=== PATIENT | male | born 1975 | race Caucasian/White ===

== ENCOUNTER 2019-07-02 15:44 | Inpatient (IN) | payer MEDICARE ==
[~2019-07-02] VITALS: Ht 182.8 cm; Wt 96.6 kg
--- NOTE | ~2019-07-02 | CON ---
[place], [place] REPORT OF CONSULTATION NAME: JONNIE LONGO UNIT #: [id number] ROOM: 419 DOCTOR: PHD DARIEL MARTINHERINE BIRTHDATE: [birth year] DOS: 07/05/2019 HISTORY OF PRESENT ILLNESS: The patient is a 43-year-old male referred by the hospitalist for counseling due to depression. At the present time, the patient is on the 4th floor at [facility]. The patient presented to the ED for alcohol withdrawal. He was participating in [facility] [employer] program. He lives alone. He has never and does not have any children. He is drinking 3 sets of liquor every day and a case of beer, he drinks a 3 sets of whiskey and a case of beer daily. He had had 10 months of sobriety. He is a smoker and has a history of drug use. He is currently using marijuana. He is on disability due to spinal issues. He worked in the past as a musician. PAST MEDICAL HISTORY: Anxiety, back fracture, cervical pain, CVA, delirium tremens, DVT, dyslipidemia, marijuana abuse, MRSA, myocardial infarction, near syncope, opiate use, renal failure, ventricular trigeminy, and vitamin D insufficiency. MEDICATIONS: Nicotrol inhaler, folic acid, thiamine, Theragran, Lovenox, Sinequan, Neurontin, Desyrel, Zofran, Maalox, Dulcolax, Senokot, Imodium, nicotine, polacrilex, Motrin, Tylenol, Nicoderm, Vistaril, Bentyl, Robaxin, Ativan, and Librium. PHYSICAL EXAMINATION: The patient was sitting comfortably, in no apparent distress. He was awake, alert and oriented to person, place, and time. Mood was anxious and depressed. Affect was tearful and blunted. He endorsed passive suicidal ideation, but firmly denied active thoughts of wanting to harm himself or someone else. He cites his quaker beliefs as a protective factor. He endorsed subjective sense of sadness and loneliness, poor sleep, racing thoughts and hopelessness. [facility] and is trying to start individual counseling again as well. He is also hoping to engage in alcohol abuse counseling. He has a significant trauma history, which we discussed. Speech and language were within normal limits conversationally. Thought process was linear and goal directed. Thought content was negative for hallucinations or delusions. Discussed the patient's concerns about discharging, utilized CBT and supportive therapy interventions. The patient appeared to benefit. DIAGNOSES: Alcohol abuse, posttraumatic stress disorder, bipolar disorder by history. RECOMMENDATIONS: The patient would likely benefit from continuing to follow up with the [facility] for his medication management and also individual counseling, specifically dealing with his trauma history. He would also likely benefit from alcohol abuse counseling as well. The patient is agreeable and plans to follow up after discharge. Thank you very much for this consult. [place], [place] REPORT OF CONSULTATION NAME: JONNIE LONGO UNIT #: [id number] ROOM: 419 DOCTOR: RENALDO, PHD AGUSTIN BIRTHDATE: [birth year] Catia Martin, PhD CM:CONSTR:REPORT OF CONSULTATION 1206 07/05/19 2211 interface
--- NOTE | ~2019-07-02 | EKG ---
[place], [place] ELECTROCARDIOGRAM REPORT NAME: JONNIE LONGO UNIT #: [id number] ROOM: 424 DOCTOR: RODRIGUEZ DRAFT REPORT BIRTHDATE: [birth year] [facility] Test Date: 2019-07-02 Test Time: 17:01:34 Pat Name: JONNIE LONGO Department: Room: 424 Gender: M Tow Motor Operator: Laura Samson : 1975 Requested By: PATRICIA SHABAZZ Order Number: [id number] Reading MD: Ignacio Garcia Measurements Intervals [place] Rate: 69 P: 37 CO: 112 QRS: 54 QRSD: 90 T: 9 QT: 379 QTc: 406 Interpretive Statements Sinus rhythm Borderline short CO interval Nonspecific T abnormalities, lateral leads ST elev, probable normal early repol pattern Compared to ECG 04/16/2019 17:54:26 T-wave abnormality now present Sinus bradycardia no longer present ST (T wave) deviation still present Electronically Signed On 07-04-2019 8:52:21 PDT by Ignacio Garcia CM:EKGRPT:ELECTROCARDIOGRAM REPORT [id number] PATRICIA FRIAS DRAFT REPORT PATRICIA SHAABZZ
[~2019-07-02 15:44] MED LIST: ASPIRIN CHEWABL81 MG PO; ATIVAN0.5 MG PO; DOXEPIN50 MG PO; DOXYCYCLINE MO100 M1 PO; DOXYCYCLINE100 M3 PO; GLYCOPYRROLATE2 MG PO; IBU800 M2 PO; NEURONTIN300 MG PO; ONDANSETRON8 MG PO; VITAMIN D32000 UNI1 PO
[2019-07-02 15:49] VITALS: BP 146/90
[2019-07-02] MEDS ORDERED: LORAZEPAM0.5 MG PO (15:53)
[2019-07-02] MEDS ORDERED: DOXEPIN HCL50 MG PO (15:53)
[2019-07-02] MEDS ORDERED: GABAPENTIN400 MG PO (15:53)
[2019-07-02 16:20] LABS: BASO # 0.1 10*3/uL (0.0-0.1); BASO % 0.4 % (0.0-1.0); EOS # 0.4 10*3/uL (0.0-0.4); EOS % 2.6 % (1.0-4.0); HEMATOCRIT 45.5 % (42.0-52.0); HEMOGLOBIN 15.4 g/dl (14.0-18.0); LYMPH # 3.6 10*3/uL (1.3-4.4); LYMPH % 23.7 % (27.0-41.0); MEAN CELL VOLUME 90.8 fl (80.0-94.0); MEAN CORPUSCULAR HGB 30.7 pg (27.0-31.0); MEAN CORPUSCULAR HGB CONC 33.8 g/dl (33.0-37.0); MEAN PLATELET VOLUME 10.5 fl (9.6-12.3); MONO # 0.8 10*3/uL (0.1-1.0); NEUT # 10.2 10*3/uL (2.3-7.9); NEUT % 67.8 % (47.0-73.0); PLATELET COUNT AUTOMATED 183 10*3/uL (130-400); RED BLOOD COUNT 5.01 10*6/uL (4.50-5.90); RED CELL DISTRI WIDTH 13.7 % (0-14.5)
[2019-07-02 16:31] LABS: ACT PARTIAL THROMBO TIME 27.1 SECONDS (20.0-32.1); INTERNATIONAL NORM RATIO 0.9 (2.0-3.5)
[2019-07-02 16:36] LABS: ALBUMIN 3.8 gm/dl (3.1-4.5); ALKALINE PHOSPHATASE 71 U/L (45-117); BUN 10 mg/dl (7-24); CHLORIDE 109 mmol/L (98-107); CREATININE 1.16 mg/dL (0.70-1.30); SGOT/AST 19 IU/L (3-35); SGPT/ALT 37 U/L (12-78); SODIUM 141 mmol/L (136-145); TOTAL PROTEIN 7.4 gm/dL (6.4-8.2)
[2019-07-02 16:37] LABS: ETHYL ALCOHOL < 3.0 mg/dl (<3)
[2019-07-02 16:44] LABS: THYROID STIM HORMONE (HS) 0.826 uIU/ml (0.358-4.75)
[2019-07-02 16:45] VITALS: BP 130/78
[2019-07-02 17:33] VITALS: BP 139/73
[2019-07-02 20:00] VITALS: BP 137/73
[2019-07-02 20:26] LABS: BILIRUBIN NEGATIVE (NEGATIVE); BLOOD NEGATIVE (NEGATIVE); CLARITY CLEAR (CLEAR); COLOR YELLOW (YELLOW); GLUCOSE NEGATIVE (NEGATIVE); KETONE TRACE (NEGATIVE); LEUKO ESTERASE NEGATIVE (NEGATIVE); NITRITE NEGATIVE (NEGATIVE); SPECIFIC GRAVITY 1.025 (1.005-1.030); UROBILINOGEN 0.2 E.U./dl (0.2-1.0)
[2019-07-02 20:34] LABS: BACTERIA 1+; EPITHELIAL CELLS 0-2; URINE AMPHETAMINES < 1000 (1000ng/ml); URINE BARBITURATES > 200 (200ng/ml); URINE BENZODIAZEPINES < 200 (200ng/ml); URINE CANNABINOIDS (THC) > 50 (50ng/ml); URINE COCAINE < 300 (300ng/ml); URINE METHADONE < 300 (300ng/ml); URINE OPIATES < 300 (300ng/ml)
[2019-07-02 20:36] LABS: URINE PHENCYCLIDINE < 25 (25ng/ml)
[2019-07-03] VITALS: BP 130/62
[2019-07-03 08:00] VITALS: BP 104/60
[2019-07-03 16:00] VITALS: BP 126/86
[2019-07-03 19:34] VITALS: BP 150/84
[2019-07-03 20:00] VITALS: BP 136/76
[2019-07-04] VITALS: BP 131/79
[2019-07-04 08:00] VITALS: BP 90/53
[2019-07-04 09:09] VITALS: BP 124/70
[2019-07-04 12:00] VITALS: BP 134/87
[2019-07-04 16:00] VITALS: BP 145/95
[2019-07-04 20:00] VITALS: BP 153/87
[2019-07-05] VITALS: BP 139/58
[2019-07-05 06:17] LABS: BASO # 0.1 10*3/uL (0.0-0.1); BASO % 0.6 % (0.0-1.0); EOS # 0.6 10*3/uL (0.0-0.4); EOS % 5.3 % (1.0-4.0); HEMATOCRIT 43.2 % (42.0-52.0); HEMOGLOBIN 14.1 g/dl (14.0-18.0); LYMPH # 3.9 10*3/uL (1.3-4.4); LYMPH % 34.8 % (27.0-41.0); MEAN CELL VOLUME 92.1 fl (80.0-94.0); MEAN CORPUSCULAR HGB 30.1 pg (27.0-31.0); MEAN CORPUSCULAR HGB CONC 32.6 g/dl (33.0-37.0); MEAN PLATELET VOLUME 10.8 fl (9.6-12.3); MONO % 9.1 % (3.0-9.0); NEUT # 5.6 10*3/uL (2.3-7.9); NEUT % 49.3 % (47.0-73.0); PLATELET COUNT AUTOMATED 158 10*3/uL (130-400); RED BLOOD COUNT 4.69 10*6/uL (4.50-5.90); RED CELL DISTRI WIDTH 13.7 % (0-14.5); WHITE BLOOD COUNT 11.3 10*3/uL (4.8-10.8)
[2019-07-05 06:42] LABS: CREATININE 0.98 mg/dL (0.70-1.30)
[2019-07-05 08:00] VITALS: BP 129/72
[2019-07-05] MEDS ORDERED: VITAMIN B-1100 M1 PO (11:27)
[2019-07-05] MEDS ORDERED: MOTRIN 600 MG E4 TAB PO (11:27)
[2019-07-05] MEDS ORDERED: THERA TABLET400 MCG PO (11:27)
[2019-07-05] MEDS ORDERED: METHOCARBAMOL750 M1 PO (11:27)
[2019-07-05] MEDS ORDERED: ATARAX,VISTARIL50 MG PO (11:27)
[2019-07-05] MEDS ORDERED: DICYCLOMINE HCL20 MG PO (11:27)
[2019-07-05] MEDS ORDERED: NATURE'S BLEND F1 MG PO (11:27)
[2019-07-05 12:00] VITALS: BP 143/77
== END 2019-07-05 13:15 | disposition home or self-care (01) | DRG 897 ==
LOC: ED 15:44 → 4E 15:59 → EDHOLD 15:59 → 4E 16:42
PROVIDERS: Emergency Medicine; ADMIT Family Medicine
DX: F10.239 Alcohol dependence with withdrawal, unspecified (principal); E83.41 Hypermagnesemia; F17.210 Nicotine dependence, cigarettes, uncomplicated; E78.5 Hyperlipidemia, unspecified; F43.10 Post-traumatic stress disorder, unspecified; E66.3 Overweight; F31.9 Bipolar disorder, unspecified; E78.00 Pure hypercholesterolemia, unspecified; D72.829 Elevated white blood cell count, unspecified; Z71.6 Tobacco abuse counseling; Z88.8 Allergy status to other drugs, medicaments and biological substances; Z86.73 Personal history of transient ischemic attack (TIA), and cerebral infarction without residual deficits; Z86.718 Personal history of other venous thrombosis and embolism; Z86.14 Personal history of Methicillin resistant Staphylococcus aureus infection; I25.2 Old myocardial infarction; Z98.1 Arthrodesis status; Z68.28 Body mass index [BMI] 28.0-28.9, adult

== ENCOUNTER 2019-07-11 09:30 | Inpatient (IN) | payer MEDICARE ==
[2019-07-11] VITALS (8 sets, daily range): BP systolic 113–133; BP diastolic 60–81
[~2019-07-11] VITALS: Ht 182.8 cm; Wt 98.5 kg
--- NOTE | ~2019-07-11 | PR ---
[place], [place] PROGRESS NOTE NAME: JONNIE LONGO UNIT #: [id number] ROOM: 516 DOCTOR: JAMI DIAZ,NATHAN BIRTHDATE: [birth year] DOS: 07/12/2019 REASON FOR VISIT: Chest pain, syncope. SUBJECTIVE: The patient denies any chest pain on exertion, but had occasional left-sided pain at rest. No shortness of breath. No PND, no orthopnea. No nausea, vomiting, diarrhea. No dizziness. He described this pain as a hurting sensation at rest, lasts for a few seconds to minutes. No associated symptoms. REVIEW OF SYSTEMS: Review of the 8 systems negative except as mentioned above. PHYSICAL EXAMINATION: VITAL SIGNS: Blood pressure 126/66, pulse 54, respiratory rate was 18, weight 98.5 kilos. RHYTHM STRIPS: Shows sinus rhythm, occasional sinus bradycardia, occasional PVCs. GENERAL: Alert, comfortable, in no acute distress. NECK: Supple, no distended neck veins. No carotid bruit. CHEST: Symmetrical, nontender. LUNGS: Clear to auscultation bilaterally. HEART: Slightly irregular. No S3. ABDOMEN: Benign, nontender. EXTREMITIES: Showed no edema. Distal pulses palpable. SKIN: Warm and dry. No cyanosis, no clubbing. RECTAL: Deferred. GENITOURINARY: Deferred. IMPRESSION: 1. Presyncope, etiology unknown, no recurrence. No significant karen or tachy arrhythmias. 2. Chest pain, atypical, myocardial infarction ruled out. 3. Sinus bradycardia, asymptomatic. 4. History of cerebrovascular accident. 5. History of ventricular ectopy. 6. Tobacco use. 7. Chronic back pain. RECOMMENDATIONS: 1. Continue current medication. 2. Lexiscan stress test today. 3. A 2D echo was ordered and pending. 4. If stress test and echo unremarkable, he can be discharged home today. 5. I would recommend outpatient Holter monitor for evaluation of his ventricular ectopy. 6. No family at bedside at the time of examination. 7. Above recommendation discussed with the patient. 8. The patient counseled to quit smoking. [place], [place] PROGRESS NOTE NAME: JONNIE LONGO UNIT #: [id number] ROOM: 516 DOCTOR: NATHAN FARRELL MD BIRTHDATE: [birth year] NATHAN FARRELL MD CM:PNTRANS [id number] NATHAN FARRELL MD 07/13/19 0056 interface
--- NOTE | ~2019-07-11 | ST ---
[place], [place] EXERCISE STRESS TEST REPORT NAME: JONNIE LONGO UNIT #: [id number] ROOM: 516 DOCTOR: JAMI DIAZ,NATHAN BIRTHDATE: [birth year] DOS: 07/12/2019 LEXISCAN STRESS TEST REASON FOR TEST: Chest pain, tested with Lexiscan protocol. PHYSICAL EXAMINATION: NECK: Supple. LUNGS: Clear anteriorly. HEART: Regular rhythm. PROTOCOL: Lexiscan protocol. Maximum heart rate 98, peak blood pressure 108/60. SYMPTOMS: The patient is chest pain free. EKG: Resting EKG, sinus rhythm with occasional PVCs. Stress EKG showed occasional PVCs, no ischemia. CONCLUSION: Clinically, the patient is chest pain free. EKG, occasional PVCs during rest and during stress. POST-STRESS COMPLICATIONS: None. The patient received a total of 0.4 mg Lexiscan. NATHAN FARRELL MD CM:STRESS:EXERCISE STRESS TEST REPORT [id number] NATHAN FARRELL MD
--- NOTE | ~2019-07-11 | EKG ---
[place], [place] ELECTROCARDIOGRAM REPORT NAME: JONNIE LONGO UNIT #: [id number] ROOM: 516 DOCTOR: RODRIGUEZ DRAFT REPORT BIRTHDATE: [birth year] [facility] Test Date: 2019-07-11 Test Time: 15:33:47 Pat Name: JONNIE LONGO Department: Room: 516 Gender: M Tar [employer] Ammonia Pump Operator: NATALIA : 1975 Requested By: ELGIN DANIELSON Order Number: [id number] Reading MD: Ignacio Garcia Measurements Intervals [place] Rate: 59 P: 39 KS: 226 QRS: 56 QRSD: 80 T: 36 QT: 378 QTc: 375 Interpretive Statements Sinus rhythm Atrial premature complex ST elev, probable normal early repol pattern Baseline wander in lead(s) V4 Compared to ECG 07/11/2019 12:39:00 Atrial premature complex(es) now present ST (T wave) deviation still present Electronically Signed On 07-13-2019 5:46:09 PDT by Ignacio Garcia CM:EKGRPT:ELECTROCARDIOGRAM REPORT [id number] ELGIN FRIAS DRAFT REPORT ELGIN DANIELSON MD
--- NOTE | ~2019-07-11 | EKG ---
[place], [place] ELECTROCARDIOGRAM REPORT NAME: JONNIE LONGO UNIT #: [id number] ROOM: 516 DOCTOR: RODRIGUEZ DRAFT REPORT BIRTHDATE: [birth year] [facility] Test Date: 2019-07-11 Test Time: 09:31:19 Pat Name: JONNIE LONGO Department: Room: 516 Gender: M Haulage Engine Operator: : 1975 Requested By: ELGIN DANIELSON Order Number: [id number] Reading MD: David Trent MD Measurements Intervals [place] Rate: 90 P: 85 SC: 117 QRS: 69 QRSD: 80 T: 35 QT: 349 QTc: 427 Interpretive Statements Sinus rhythm Electronically Signed On 07-11-2019 10:15:36 PDT by David Trent MD CM:EKGRPT:ELECTROCARDIOGRAM REPORT [id number] ELGIN DANIELSON MD EPIPHANY DRAFT REPORT ELGIN DANIELSON MD
--- NOTE | ~2019-07-11 | EKG ---
[place], [place] ELECTROCARDIOGRAM REPORT NAME: JONNIE LONGO UNIT #: [id number] ROOM: 516 DOCTOR: RODRIGUEZ DRAFT REPORT BIRTHDATE: [birth year] [facility] Test Date: 2019-07-11 Test Time: 12:39:00 Pat Name: JONNIE LONGO Department: Room: 516 Gender: M Works[employer] Well[employer] Practitioner: Laura Samson : 1975 Requested By: ELGIN DANIELSON Order Number: [id number] Reading MD: David Trent MD Measurements Intervals [place] Rate: 67 P: 42 VT: 113 QRS: 47 QRSD: 86 T: 28 QT: 406 QTc: 429 Interpretive Statements Sinus rhythm ST elev, probable normal early repol pattern Compared to ECG 07/02/2019 17:01:34 T-wave abnormality no longer present ST (T wave) deviation still present Electronically Signed On 07-11-2019 10:20:02 PDT by David Trent MD CM:EKGRPT:ELECTROCARDIOGRAM REPORT [id number] ELGIN DANIELSON MD EPIPHANY DRAFT REPORT ELGIN DANIELSON MD
--- NOTE | ~2019-07-11 | CON ---
[place], [place] REPORT OF CONSULTATION NAME: JONNIE LONGO UNIT #: [id number] ROOM: 516 DOCTOR: RAYNE ORDOÑEZ BIRTHDATE: [birth year] DOS: 07/11/2019 CARDIOLOGY CONSULTATION REASON FOR CONSULTATION: Chest pain and syncope. REQUESTING PHYSICIAN: Dr. Vineet Mahoney. HISTORY OF PRESENT ILLNESS: The patient is a 43-year-old gentleman with a long history of alcohol abuse, as well as chronic back pain, depression, history of a CVA with no residual weakness and questionable history of prior [place]. He has previously been seen by my colleague, Dr. Latoya Phelps, back in 03/2019 where he was evaluated for chest pain. An outpatient stress test was recommended at that time, but the patient did not follow up. On this occasion, the patient states for several months, he has had heaviness in his chest that he states feels like his heart is heavy. It is on the left side of his chest, radiates to the left arm. This is worse with exertion, associated with palpitations. He states this has been on and off for several months. He also does have at rest, however. The patient states that a week ago, he was admitted for alcohol withdrawal and detoxification. He has been clean for a week, but he relapsed on Friday and drank heavily. Over the weekend, he has not been eating much, and has had abdominal pain, shakes, nausea, diarrhea and this ongoing chest heaviness. Today at home, he woke up, was up for about 45 minutes, was going to have cigarette and then he became dizzy and lightheaded, felt his vision going black, felt his heart pounding and heart became heavy, and he almost passed out. He did not lose consciousness and he kind of fell to the floor, but caught himself before going all the way down. He then called the ambulance and was brought in for evaluation. Two sets of troponins have been negative, EKG showed no acute findings. His EKG on presentation showed normal sinus rhythm with very subtle ST elevation in the inferior leads that are similar to prior, probably early repolarization. There is no significant change from prior EKGs several months back. His repeat EKG again showed sinus rhythm with subtle inferior elevations, but no other abnormalities. No dynamic changes noted. Telemetry shows some trigeminy which she has had a history of in the past. He has never had a cardiac evaluation in terms of echocardiogram, stress testing or heart catheterization that he is aware of. He states he had a CVA several years ago in [place] when he had severe weakness on the left side including facial droop, arm, and leg. He was in the hospital for several days and all of his weakness resolved. Unclear if he received TPA or any other treatment. REVIEW OF SYSTEMS: A detailed review of systems negative except as described above. PAST MEDICAL HISTORY: Alcohol abuse, anxiety, fracture of the collarbone, tobacco abuse, history of CVA. He had a blood clot as a complication of his fractured collarbone. He apparently had an episode of dialysis because of a drug overdose but currently normal renal function. He has a history of [place], [place] REPORT OF CONSULTATION NAME: JONNIE LONGO UNIT #: [id number] ROOM: 516 DOCTOR: RAYNE ORDOÑEZ BIRTHDATE: [birth year] rheumatoid arthritis and previously documented ventricular trigeminy. PAST SURGICAL HISTORY: He has had inguinal hernia repair, lumbar surgery, cervical spine fusion, tonsillectomy, morphine pump placed and removed. SOCIAL HISTORY: He is a heavy drinker, as described recently went through detox but relapsed on Friday. He has not had a drink since Friday. Smokes marijuana. Smokes 2 packs of cigarettes a day. He is single. FAMILY HISTORY: His mother apparently had coronary artery disease. He believes in her mid-50s with heart attacks and stents; also history of stroke, and she of cancer. His father is alive, he does not know his history well, but he knows he is an alcoholic. The patient has 2 brothers and 2 sisters. He states 1 brother had some heart surgery at the age of 10, but does not know the details. No other known history of heart trouble in the family. ALLERGIES: LISTED TO DULOXETINE AND ASENAPINE. HOME MEDICATIONS: Include Doxepin, folic acid, gabapentin, hydroxyzine, ibuprofen, lorazepam, and omeprazole. PHYSICAL EXAMINATION: VITAL SIGNS: Afebrile, pulse in the 60s, respirations 20, blood pressure 122/69, and saturating 99% on room air. GENERAL APPEARANCE: He is a young male, well built, sitting up in bed, in no distress. ENT: Moist mucous membranes. Pupils equal, round, reactive. NECK: Supple. Jugular venous pressure normal. No carotid bruits. RESPIRATORY: Lungs are clear. CARDIOVASCULAR: Regular rhythm, normal rate. No murmurs. ABDOMEN: Positive bowel sounds. Soft, nontender. EXTREMITIES: Warm, well perfused. No edema. He moves all extremities. SKIN: No lesions or rashes. He has tattoos all over. NEUROLOGIC: Nonfocal. LABORATORY DATA: White blood cell count 11.6, hemoglobin 16, platelets 238, creatinine 1.16. Two sets of troponins negative. Urine toxicology positive for cannabinoids. Urinalysis is unremarkable. IMPRESSION: 1. Chest pain, typical and atypical features. No evidence of acute coronary syndrome or acute changes on EKG. Multiple risk factors for coronary artery disease including tobacco abuse and family history. 2. Ventricular trigeminy. 3. Early repolarization pattern on EKG. 4. Heavy alcohol abuse, question alcoholic cardiomyopathy. 5. Syncopal episode, etiology unclear. Need to rule out cardiac cause. 6. Chronic issues of chronic back pain, anxiety, and depression. RECOMMENDATIONS: [place], [place] REPORT OF CONSULTATION NAME: JONNIE LONGO UNIT #: [id number] ROOM: 516 DOCTOR: RAYNE ORDOÑEZ BIRTHDATE: [birth year] 1. We will arrange for pharmacologic nuclear stress test tomorrow to assess for any coronary artery disease. Ideally, I would have him exercise, but the patient feels very weak, has not been eating and says his legs are weak, and with a syncopal episode I am not sure he would be able to get his heart rate up on the treadmill. 2. We will check a 2D echocardiogram. 3. Continue to monitor telemetry. 4. Further recommendations pending the outcome of these studies. Thank you for the consultation. Dr. RAYNE ORDOÑEZ MD CM:CONSTR:REPORT OF CONSULTATION 99 07/11/192125 interface
[~2019-07-11 09:30] MED LIST changes: +ATARAX,VISTARIL50 MG PO; +DICYCLOMINE HCL20 MG PO; +DOXEPIN HCL50 MG PO; +GABAPENTIN400 MG PO; +LORAZEPAM0.5 MG PO; +METHOCARBAMOL750 M1 PO; +MOTRIN 600 MG E4 TAB PO; +NATURE'S BLEND F1 MG PO; +THERA TABLET400 MCG PO; +VITAMIN B-1100 M1 PO
[2019-07-11 09:50] LABS: BASO # 0.1 10*3/uL (0.0-0.1); BASO % 0.8 % (0.0-1.0); EOS # 0.6 10*3/uL (0.0-0.4); EOS % 4.8 % (1.0-4.0); LYMPH # 3.1 10*3/uL (1.3-4.4); MEAN CELL VOLUME 90.1 fl (80.0-94.0); MEAN CORPUSCULAR HGB CONC 33.3 g/dl (33.0-37.0); MEAN PLATELET VOLUME 10.1 fl (9.6-12.3); MONO # 1.2 10*3/uL (0.1-1.0); MONO % 9.9 % (3.0-9.0); NEUT # 6.6 10*3/uL (2.3-7.9); NEUT % 56.5 % (47.0-73.0); PLATELET COUNT AUTOMATED 238 10*3/uL (130-400); RED BLOOD COUNT 5.33 10*6/uL (4.50-5.90); RED CELL DISTRI WIDTH 14.2 % (0-14.5); WHITE BLOOD COUNT 11.6 10*3/uL (4.8-10.8)
[2019-07-11 10:03] LABS: ACT PARTIAL THROMBO TIME 27.8 SECONDS (20.0-32.1); INTERNATIONAL NORM RATIO 0.9 (2.0-3.5)
[2019-07-11 10:06] LABS: ALBUMIN 3.6 gm/dl (3.1-4.5); ALKALINE PHOSPHATASE 90 U/L (45-117); BUN 11 mg/dl (7-24); CHLORIDE 110 mmol/L (98-107); CREATININE 1.16 mg/dL (0.70-1.30); SGOT/AST 16 IU/L (3-35); SGPT/ALT 60 U/L (12-78); SODIUM 141 mmol/L (136-145)
[2019-07-11 10:09] LABS: TROPONIN I < 0.015 ng/ml (<0.045)
[2019-07-11 10:55] LABS: BILIRUBIN NEGATIVE (NEGATIVE); BLOOD NEGATIVE (NEGATIVE); CLARITY CLEAR (CLEAR); COLOR YELLOW (YELLOW); GLUCOSE NEGATIVE (NEGATIVE); KETONE NEGATIVE (NEGATIVE); LEUKO ESTERASE NEGATIVE (NEGATIVE); NITRITE NEGATIVE (NEGATIVE); SPECIFIC GRAVITY <= 1.005 (1.005-1.030); UROBILINOGEN 0.2 E.U./dl (0.2-1.0)
[2019-07-11 11:02] LABS: URINE AMPHETAMINES < 1000 (1000ng/ml); URINE BARBITURATES < 200 (200ng/ml); URINE BENZODIAZEPINES < 200 (200ng/ml); URINE CANNABINOIDS (THC) > 50 (50ng/ml); URINE COCAINE < 300 (300ng/ml); URINE METHADONE < 300 (300ng/ml); URINE OPIATES < 300 (300ng/ml)
[2019-07-11 11:04] LABS: URINE PHENCYCLIDINE < 25 (25ng/ml)
[2019-07-11 11:07] LABS: EPITHELIAL CELLS 0-2; RBC 0-2 rbc/hpf (0-2); WBC 0-2 wbc/hpf (0-5)
--- NOTE | 2019-07-11 11:30 | NUR ---
A 43, admitted to , under the services of SHELLY Garcia DO with a diagnosis of SYNCOPE. Chief complaint is CHEST PAIN. Patient arrived via stretcher from ER. Monitor applied. Initial assessment completed. Vital signs taken and recorded. SHELLY GARCIA DO notified of admission to the unit. Orders received. See assessment for past medical history, medications and allergies. Patient and/or family oriented to unit. [address] visitation policy reviewed. Clothing/patient valuable form completed. SAURABH COLÓN
--- NOTE | 2019-07-11 11:35 | NUR ---
PT STABLE AND [facility]Y FOR TRANSPORT TO INPATIENT BED.
[2019-07-11] MEDS ORDERED: OMEPRAZOLE40 MG PO (13:52)
--- NOTE | 2019-07-11 14:30 | NUR ---
Dr. Chapman notified of updated med rec. No new orders at this time.
--- NOTE | 2019-07-11 14:51 | NUR ---
[place] given per patient request for c/o chest pain rated 8/10. Will monitor.
--- NOTE | 2019-07-11 15:30 | NUR ---
Saroj effective. Patient satisfied.
[2019-07-12] VITALS: BP 125/66
[2019-07-12 06:52] LABS: BASO # 0.1 10*3/uL (0.0-0.1); EOS # 0.5 10*3/uL (0.0-0.4); EOS % 4.6 % (1.0-4.0); LYMPH % 37.8 % (27.0-41.0); MEAN CELL VOLUME 91.5 fl (80.0-94.0); MEAN CORPUSCULAR HGB 29.8 pg (27.0-31.0); MEAN CORPUSCULAR HGB CONC 32.6 g/dl (33.0-37.0); MONO % 9.2 % (3.0-9.0); NEUT # 4.9 10*3/uL (2.3-7.9); NEUT % 46.4 % (47.0-73.0); PLATELET COUNT AUTOMATED 216 10*3/uL (130-400); RED BLOOD COUNT 5.03 10*6/uL (4.50-5.90); RED CELL DISTRI WIDTH 14.1 % (0-14.5); WHITE BLOOD COUNT 10.7 10*3/uL (4.8-10.8)
[2019-07-12 07:26] LABS: ALBUMIN 3.3 gm/dl (3.1-4.5); ALKALINE PHOSPHATASE 77 U/L (45-117); BUN 13 mg/dl (7-24); CHLORIDE 106 mmol/L (98-107); HDL CHOLESTEROL 34 mg/dl (40-60); POTASSIUM 4.1 mmol/L (3.5-5.1); SODIUM 138 mmol/L (136-145); TOTAL PROTEIN 6.5 gm/dL (6.4-8.2)
[2019-07-12 07:32] LABS: CHOLESTEROL 227 mg/dL (<200); CREATININE 1.12 mg/dL (0.70-1.30); LDL CHOLESTEROL 137 mg/dL (9-159); PHOSPHOROUS 3.6 mg/dL (2.5-4.9); SGOT/AST 6 IU/L (3-35); SGPT/ALT 45 U/L (12-78); TRIGLYCERIDES 280 mg/dl (<150); VLDL CHOLESTEROL 56 mg/dL (6-40)
[2019-07-12 08:30] LABS: INTERNATIONAL NORM RATIO 0.9 (2.0-3.5)
--- NOTE | 2019-07-12 08:35 | NUR ---
MEDICATED WITH PRN IV MORPHINE FOR C/O CHEST PAIN AND HEAVINESS.
[2019-07-12 08:42] VITALS: BP 116/68
--- NOTE | 2019-07-12 09:17 | NUR ---
PHYSICAL THERAPY Nursing screen received and chart reviewed. No indications for further PT services at this time. Please recommend PT evaluation if functional mobility declines. Thank you. Zaira Zambrano,PT,DPT.
--- NOTE | 2019-07-12 09:52 | NUR ---
PATIENT TO STRESS TEST BY WHEELCHAIR.
--- NOTE | 2019-07-12 10:29 | NUR ---
INFORMED CONSENT SIGNED FOR LEXISCAN STRESS TEST WITH DR. FARRELL. RESTING EKG SINUS BRADYCARDIA WITH RARE PVC. HR 56, BP 90/58. PULSE OX 97% AND LUNGS CLEAR BUT DEMINISHED BILATERALLY. COMPLETED ONE MINUTE OF LEXISCAN PROTOCOL RECEIVING LEXISCAN 0.4MG OVER 10 SECONDS. FREQUENT PVC'S NOTED WITH NO ST CHANGES. PT C/O HEADACHE AND DIZZINESS. LAST RECOVERY HR 76, BP 108/60. WAITING NUCLEAR SCANNING IN STABLE CONDITION.
--- NOTE | 2019-07-12 12:49 | NUR ---
PATIENT BACK FROM STRESS TEST, RESUMING MEDS AND DIET, SEE SHIFT ASSESSMENT.
--- NOTE | 2019-07-12 13:09 | NUR ---
MEDICATED WITH PRN IV MORPHINE FOR CHEST PAIN.
[2019-07-12 13:40] VITALS: BP 139/88
--- NOTE | 2019-07-12 14:26 | NUR ---
PER DR. FARRELL, PATIENT MAY BE DISCHARGED HOME TODAY WITH HALTER MONITOR FOR USE AT HOME. SHANTEL MORALES NOTIFIED, WILL DISCHARGE TODAY; [facility] WILL ADMINISTER THE MONITOR PRIOR TO PATIENT LEAVING.
--- NOTE | 2019-07-12 14:40 | NUR ---
WENT TO UNIT TO APPLY HOLTOR MONITOR. TEAM TRUCK DRIVER SPEAKING TO PT CONCERNING A RIDE HOME TODAY. INSTRUCTED PT THAT HE WOULD NEED TO BRING BACK MONITOR FRIDAY MORNING. PT STATES HE IS NEW TO ARE[place] AND DOES NOT DRIVE OR KNOW ANYBODY AND HAS NO WAY TO RETURN IT. DR. FARRELL CALLED AND INFORMED OF SITUATION. ORDER RECEIVED TO CANCEL. NURSE NOTIFIED.
--- NOTE | 2019-07-12 14:53 | NUR ---
Solid Tire Finisher in to talk to patient. Patient states lives at HOME with ALONE. There are NO steps in the home. Physician: MATEUSZ [facility] Home health services: NONE Patient's level of ADLs: INDEPENDENT Patient has working utilities: YES DME: NONE Follow-up physician's appointment after d/c: WILL BE MADE BY HOSPITALIST NURSE DIRECTOR ON DISCHARGE Does patient want to access PORTAL?: NO Discharge plan PT STATES HE LIVES AT HOME ALONE AND JUST MOVED TO THIS AREA. STATES HE KNOWS NOONE AND HIS SISTER IS OUT OF TOWN ON VACATION. STATES HE WILL NOT HAVE A RIDE HOME ON DISCHARGE. STARTS CRYING AND SAYS HE IS MORE STRESSED NOW AND HE WILL JUST WALK HOME. INSTRUCTED TO CALL NUMBER ON BACK OF INSUANCE CARD BUT HE STATES HE TRIED THAT LAST TIME HE WAS IN [place] AND THEY TOLD HIM HE HAD NO BENEFITS. WILL CALL CAB TO SEE WHAT CAB FARE WOULD BE TO BEE. WILL CONTINUE TO FOLLOW.. ANDER BRASWELL
--- NOTE | 2019-07-12 15:00 | NUR ---
PATIENT NOT ABLE TO BRING HALTER MONITOR BACK TO [facility] CARDIOLOGY. DR. FARRELL CANCELLING THE ORDER, PER [facility]ARD[facility] REH[facility] STAFF.
--- NOTE | 2019-07-12 15:30 | NUR ---
Discharge instructions reviewed with patient. Patient receptive and verbalizes understanding. Follow-up care arranged. Written instructions given to patient. PATIENT AWAITING RIDE HOME BY [facility]. KODI MARIN
--- NOTE | 2019-07-12 15:38 | NUR ---
ARRANGEMENT MADE THROUGH INSURANCE TO PICK PT UP FOR TRANSPORT HOME. TRANSPORTATION TO BE HERE BETWEEN 3:20 AND 6:20 PM TO TAKE PT HOME. 5E ASSISTANT GUEST SERVICES MANAGER, KODI RN AND PT ALL NOTIFIED. REF # IS [id number].
--- NOTE | 2019-07-12 15:44 | NUR ---
MEDICATED WITH PRN PO ATIVAN FOR ANXIETY.
--- NOTE | 2019-07-12 17:11 | NUR ---
PATIENT DISCHARGED TO ER PARKING LOT, AMBULATORY, FOR TRANSPORT HOME BY [facility].
--- NOTE | 2019-07-13 16:58 | NUR ---
Nursing screen received and patient discharged from hospital. Tonya Hutchison OTr/l
== END 2019-07-12 17:11 | disposition home or self-care (01) | DRG 392 ==
LOC: ED 09:30 → 5E 10:50 → EDHOLD 10:50 → 5E 11:04
PROVIDERS: Emergency Medicine; Nurse Practitioner Family; Student in an Organized Health Care Education/Training Program; ADMIT Internal Medicine
PROC: 3E073KZ Introduction of Other Diagnostic Substance into Coronary Artery, Percutaneous Approach (ICD-10-PCS; principal; 2019-07-12)
PROC: 4A02XM4 Measurement of Cardiac Total Activity, External Approach (ICD-10-PCS; principal; 2019-07-12)
DX: K21.9 Gastro-esophageal reflux disease without esophagitis (principal); R55 Syncope and collapse; D72.828 Other elevated white blood cell count; R00.8 Other abnormalities of heart beat; E83.41 Hypermagnesemia; E66.3 Overweight; E87.8 Other disorders of electrolyte and fluid balance, not elsewhere classified; E78.5 Hyperlipidemia, unspecified; F10.10 Alcohol abuse, uncomplicated; M06.9 Rheumatoid arthritis, unspecified; F41.9 Anxiety disorder, unspecified; R00.1 Bradycardia, unspecified; G89.29 Other chronic pain; M54.9 Dorsalgia, unspecified; F32.9 Major depressive disorder, single episode, unspecified; R06.82 Tachypnea, not elsewhere classified; F12.10 Cannabis abuse, uncomplicated; F17.210 Nicotine dependence, cigarettes, uncomplicated; Z71.6 Tobacco abuse counseling; Z88.8 Allergy status to other drugs, medicaments and biological substances; Z86.73 Personal history of transient ischemic attack (TIA), and cerebral infarction without residual deficits; Z86.718 Personal history of other venous thrombosis and embolism; Z86.14 Personal history of Methicillin resistant Staphylococcus aureus infection; I25.2 Old myocardial infarction; Z98.1 Arthrodesis status; Z80.3 Family history of malignant neoplasm of breast; Z82.69 Family history of other diseases of the musculoskeletal system and connective tissue; Z82.49 Family history of ischemic heart disease and other diseases of the circulatory system; Z79.899 Other long term (current) drug therapy; Z68.29 Body mass index [BMI] 29.0-29.9, adult

== ENCOUNTER 2019-08-02 20:36 | Emergency (ER) | payer MEDICARE ==
[~2019-08-02] VITALS: Ht 182.8 cm; Wt 99.8 kg
[~2019-08-02 20:36] MED LIST changes: +OMEPRAZOLE40 MG PO
[2019-08-02 21:11] LABS: HEMATOCRIT 48.3 % (42.0-52.0); HEMOGLOBIN 16.6 g/dl (14.0-18.0); MEAN CELL VOLUME 88.8 fl (80.0-94.0); MEAN CORPUSCULAR HGB 30.5 pg (27.0-31.0); MEAN CORPUSCULAR HGB CONC 34.4 g/dl (33.0-37.0); MEAN PLATELET VOLUME 10.1 fl (9.6-12.3); PLATELET COUNT AUTOMATED 197 10*3/uL (130-400); RED BLOOD COUNT 5.44 10*6/uL (4.50-5.90); RED CELL DISTRI WIDTH 14.4 % (0-14.5); WHITE BLOOD COUNT 12.9 10*3/uL (4.8-10.8)
[2019-08-02 21:25] LABS: ALBUMIN 3.7 gm/dl (3.1-4.5); ALKALINE PHOSPHATASE 82 U/L (45-117); BUN 12 mg/dl (7-24); CHLORIDE 110 mmol/L (98-107); CREATININE 1.09 mg/dL (0.70-1.30); POTASSIUM 3.5 mmol/L (3.5-5.1); SGOT/AST 13 IU/L (3-35); SGPT/ALT 29 U/L (12-78); SODIUM 144 mmol/L (136-145); TOTAL PROTEIN 7.4 gm/dL (6.4-8.2)
[2019-08-02 21:28] LABS: ACETAMINOPHEN (TYLENOL) < 5.0 ug/ml (10-30)
[2019-08-02 21:30] LABS: BASOPHILS 1 % (0-1); TOTAL CELLS COUNTED 100 #CELLS
[2019-08-02 21:31] LABS: PLATELET SUFFICIENCY NORMAL (NORMAL)
[2019-08-02 22:36] LABS: BILIRUBIN NEGATIVE (NEGATIVE); BLOOD NEGATIVE (NEGATIVE); CLARITY CLEAR (CLEAR); COLOR YELLOW (YELLOW); GLUCOSE NEGATIVE (NEGATIVE); KETONE NEGATIVE (NEGATIVE); LEUKO ESTERASE NEGATIVE (NEGATIVE); NITRITE NEGATIVE (NEGATIVE); SPECIFIC GRAVITY 1.025 (1.005-1.030); UROBILINOGEN 0.2 E.U./dl (0.2-1.0)
[2019-08-02 22:46] LABS: URINE AMPHETAMINES < 1000 (1000ng/ml); URINE BARBITURATES < 200 (200ng/ml); URINE BENZODIAZEPINES < 200 (200ng/ml); URINE CANNABINOIDS (THC) < 50 (50ng/ml); URINE COCAINE < 300 (300ng/ml); URINE METHADONE < 300 (300ng/ml); URINE OPIATES < 300 (300ng/ml)
[2019-08-02 22:48] LABS: WBC 0-2 wbc/hpf (0-5)
[2019-08-02 22:50] LABS: URINE PHENCYCLIDINE < 25 (25ng/ml)
== END 2019-08-03 16:05 | disposition home health service (06) ==
LOC: ED 20:36
PROVIDERS: Emergency Medicine
DX: F31.9 Bipolar disorder, unspecified (principal); F10.129 Alcohol abuse with intoxication, unspecified; F41.9 Anxiety disorder, unspecified; M06.9 Rheumatoid arthritis, unspecified; I25.2 Old myocardial infarction; F12.10 Cannabis abuse, uncomplicated; F17.210 Nicotine dependence, cigarettes, uncomplicated; Z88.8 Allergy status to other drugs, medicaments and biological substances; Z86.73 Personal history of transient ischemic attack (TIA), and cerebral infarction without residual deficits; Z86.718 Personal history of other venous thrombosis and embolism; Y90.9 Presence of alcohol in blood, level not specified

== ENCOUNTER 2019-12-20 10:45 | Emergency (ER) | payer MEDICARE ==
[~2019-12-20] VITALS: Ht 182.8 cm; Wt 99.8 kg
[2019-12-20 11:30] LABS: BASO # 0.1 10*3/uL (0.0-0.1); BASO % 0.5 % (0.0-1.0); EOS # 0.2 10*3/uL (0.0-0.4); EOS % 2.2 % (1.0-4.0); HEMATOCRIT 45.2 % (42.0-52.0); HEMOGLOBIN 15.2 g/dl (14.0-18.0); LYMPH # 3.3 10*3/uL (1.3-4.4); LYMPH % 30.5 % (27.0-41.0); MEAN CELL VOLUME 90.8 fl (80.0-94.0); MEAN CORPUSCULAR HGB 30.5 pg (27.0-31.0); MEAN CORPUSCULAR HGB CONC 33.6 g/dl (33.0-37.0); MEAN PLATELET VOLUME 9.9 fl (9.6-12.3); MONO # 0.8 10*3/uL (0.1-1.0); MONO % 7.5 % (3.0-9.0); NEUT # 6.3 10*3/uL (2.3-7.9); NEUT % 58.7 % (47.0-73.0); PLATELET COUNT AUTOMATED 201 10*3/uL (130-400); RED BLOOD COUNT 4.98 10*6/uL (4.50-5.90); RED CELL DISTRI WIDTH 13.8 % (0-14.5); WHITE BLOOD COUNT 10.8 10*3/uL (4.8-10.8)
[2019-12-20 11:43] LABS: ACT PARTIAL THROMBO TIME 27.6 SECONDS (20.0-32.1); INTERNATIONAL NORM RATIO 1.1 (2.0-3.5)
[2019-12-20 11:48] LABS: ALBUMIN 3.8 gm/dl (3.1-4.5); ALKALINE PHOSPHATASE 55 U/L (45-117); BUN 7 mg/dl (7-24); CHLORIDE 103 mmol/L (98-107); CREATININE 1.17 mg/dL (0.70-1.30); POTASSIUM 3.3 mmol/L (3.5-5.1); SGOT/AST 7 IU/L (3-35); SGPT/ALT 29 U/L (12-78); SODIUM 138 mmol/L (136-145); TOTAL PROTEIN 6.7 gm/dL (6.4-8.2)
[2019-12-20 11:51] LABS: TROPONIN I < 0.015 ng/ml (<0.045)
== END 2019-12-20 17:50 | disposition short-term general hospital (02) ==
LOC: ED 10:45
PROVIDERS: Physician Assistant
DX: R20.0 Anesthesia of skin (principal); R11.10 Vomiting, unspecified; R07.89 Other chest pain; I25.2 Old myocardial infarction; F17.200 Nicotine dependence, unspecified, uncomplicated; Z88.8 Allergy status to other drugs, medicaments and biological substances; Z79.899 Other long term (current) drug therapy; M86.9 Osteomyelitis, unspecified; Z98.890 Other specified postprocedural states; Z86.73 Personal history of transient ischemic attack (TIA), and cerebral infarction without residual deficits

== ENCOUNTER 2020-02-27 11:18 | Emergency (ER) | payer MEDICARE ==
[~2020-02-27] VITALS: Ht 175.2 cm; Wt 86.2 kg
[2020-02-27 11:50] LABS: BASO # 0.1 10*3/uL (0.0-0.1); BASO % 0.6 % (0.0-1.0); EOS # 0.8 10*3/uL (0.0-0.4); EOS % 4.8 % (1.0-4.0); HEMATOCRIT 46.5 % (42.0-52.0); HEMOGLOBIN 15.7 g/dl (14.0-18.0); LYMPH % 17.6 % (27.0-41.0); MEAN CELL VOLUME 90.6 fl (80.0-94.0); MEAN CORPUSCULAR HGB 30.6 pg (27.0-31.0); MEAN CORPUSCULAR HGB CONC 33.8 g/dl (33.0-37.0); MEAN PLATELET VOLUME 10.7 fl (9.6-12.3); MONO % 5.6 % (3.0-9.0); NEUT # 12.1 10*3/uL (2.3-7.9); NEUT % 70.8 % (47.0-73.0); PLATELET COUNT AUTOMATED 197 10*3/uL (130-400); RED BLOOD COUNT 5.13 10*6/uL (4.50-5.90); WHITE BLOOD COUNT 17.1 10*3/uL (4.8-10.8)
[2020-02-27 12:01] LABS: ACT PARTIAL THROMBO TIME 29.1 SECONDS (20.0-32.1)
[2020-02-27 12:07] LABS: ALBUMIN 3.8 gm/dl (3.1-4.5); ALKALINE PHOSPHATASE 70 U/L (45-117); BUN 11 mg/dl (7-24); CHLORIDE 112 mmol/L (98-107); CREATININE 1.22 mg/dL (0.70-1.30); POTASSIUM 3.9 mmol/L (3.5-5.1); SGOT/AST 10 IU/L (3-35); SGPT/ALT 36 U/L (12-78); SODIUM 143 mmol/L (136-145); TOTAL PROTEIN 7.2 gm/dL (6.4-8.2)
[2020-02-27 12:11] LABS: TROPONIN I < 0.015 ng/ml (<0.045)
[2020-02-27] MEDS ORDERED: NICODERM CQ1 EAC2 T (15:12)
== END 2020-02-27 15:13 | disposition home or self-care (01) ==
LOC: ED 11:18
PROVIDERS: Emergency Medicine
DX: R51 Headache (principal); N64.4 Mastodynia; F12.90 Cannabis use, unspecified, uncomplicated; M79.18 Myalgia, other site; M79.605 Pain in left leg; M79.602 Pain in left arm; R53.1 Weakness; R29.810 Facial weakness; R10.12 Left upper quadrant pain; E78.5 Hyperlipidemia, unspecified; I25.2 Old myocardial infarction; M06.9 Rheumatoid arthritis, unspecified; F31.9 Bipolar disorder, unspecified; F17.210 Nicotine dependence, cigarettes, uncomplicated; Z98.890 Other specified postprocedural states; Z86.73 Personal history of transient ischemic attack (TIA), and cerebral infarction without residual deficits; Z86.718 Personal history of other venous thrombosis and embolism; Z86.14 Personal history of Methicillin resistant Staphylococcus aureus infection; Z88.8 Allergy status to other drugs, medicaments and biological substances; Z79.899 Other long term (current) drug therapy

== ENCOUNTER 2020-03-24 05:46 | Inpatient (IN) | payer MEDICARE ==
[~2020-03-24] VITALS: Ht 182.8 cm; Wt 105.2 kg
[~2020-03-24 05:46] MED LIST changes: +NICODERM CQ1 EAC2 T
[2020-03-24 06:00] VITALS: BP 152/83
[2020-03-24 06:48] LABS: HEMATOCRIT 47.5 % (42.0-52.0); MEAN CELL VOLUME 90.3 fl (80.0-94.0); MEAN CORPUSCULAR HGB CONC 33.3 g/dl (33.0-37.0); MEAN PLATELET VOLUME 10.5 fl (9.6-12.3); PLATELET COUNT AUTOMATED 216 10*3/uL (130-400); RED BLOOD COUNT 5.26 10*6/uL (4.50-5.90); RED CELL DISTRI WIDTH 15.1 % (0-14.5); WHITE BLOOD COUNT 24.3 10*3/uL (4.8-10.8)
[2020-03-24 07:03] LABS: ALBUMIN 3.9 gm/dl (3.1-4.5); ALKALINE PHOSPHATASE 63 U/L (45-117); BUN 12 mg/dl (7-24); CHLORIDE 110 mmol/L (98-107); CREATININE 1.36 mg/dL (0.70-1.30); LIPASE 106 U/L (73-393); POTASSIUM 3.5 mmol/L (3.5-5.1); SGOT/AST 15 IU/L (3-35); SGPT/ALT 71 U/L (12-78); SODIUM 142 mmol/L (136-145); TOTAL PROTEIN 7.3 gm/dL (6.4-8.2)
[2020-03-24 07:38] LABS: PLATELET SUFFICIENCY NORMAL (NORMAL); TOTAL CELLS COUNTED 100 #CELLS
[2020-03-24 08:41] VITALS: BP 129/77
[2020-03-24 08:58] LABS: BILIRUBIN NEGATIVE (NEGATIVE); BLOOD NEGATIVE (NEGATIVE); CLARITY SL CLOUDY (CLEAR); COLOR YELLOW (YELLOW); GLUCOSE NEGATIVE (NEGATIVE); KETONE NEGATIVE (NEGATIVE); LEUKO ESTERASE NEGATIVE (NEGATIVE); NITRITE NEGATIVE (NEGATIVE); SPECIFIC GRAVITY 1.015 (1.005-1.030); UROBILINOGEN 0.2 E.U./dl (0.2-1.0)
[2020-03-24 09:06] LABS: BACTERIA 1+; MUCOUS 3+; URINE AMPHETAMINES < 1000 (1000ng/ml); URINE BARBITURATES < 200 (200ng/ml); URINE BENZODIAZEPINES > 200 (200ng/ml); URINE CANNABINOIDS (THC) > 50 (50ng/ml); URINE COCAINE < 300 (300ng/ml); URINE METHADONE < 300 (300ng/ml); URINE OPIATES < 300 (300ng/ml)
[2020-03-24 09:08] LABS: URINE PHENCYCLIDINE < 25 (25ng/ml)
[2020-03-24 10:29] VITALS: BP 148/72
[2020-03-24] MEDS ORDERED: FLORASTOR250 MG PO (10:37)
[2020-03-24] MEDS ORDERED: BENTYL PO (10:37)
[2020-03-24] MEDS ORDERED: TAMSULOSIN HCL0.4 MG PO (10:38)
[2020-03-24] MEDS ORDERED: NALTREXONE50 MG PO (10:38)
[2020-03-24] MEDS ORDERED: OMEPRAZOLE40 MG PO (10:39)
[2020-03-24] MEDS ORDERED: NAPROXEN500 MG PO (10:40)
[2020-03-24] MEDS ORDERED: ATORVASTATIN CA20 M1 PO (10:40)
[2020-03-24] MEDS ORDERED: OSTERA TABLET1 EACH PO (10:41)
[2020-03-24] MEDS ORDERED: LISINOPRIL10 M1 PO (10:42)
[2020-03-24] MEDS ORDERED: KLONOPIN0.5 MG PO (10:42)
[2020-03-24 12:00] VITALS: BP 138/86
[2020-03-24 16:00] VITALS: BP 148/86
[2020-03-24 20:00] VITALS: BP 124/76
[2020-03-25] VITALS: BP 107/67
[2020-03-25 08:00] VITALS: BP 110/60
[2020-03-25] MEDS ORDERED: AUGMENTIN 875-875 MG PO (11:11)
[2020-03-25] MEDS ORDERED: Phenergan25 MG PO (11:11)
== END 2020-03-25 11:30 | disposition home or self-care (01) | DRG 871 ==
LOC: ED 05:46 → EDHOLD 09:19 → 4E 09:19
PROVIDERS: Emergency Medicine; ADMIT Emergency Medicine
DX: A41.9 Sepsis, unspecified organism (principal); N17.0 Acute kidney failure with tubular necrosis; K57.32 Diverticulitis of large intestine without perforation or abscess without bleeding; R73.9 Hyperglycemia, unspecified; E78.5 Hyperlipidemia, unspecified; F41.9 Anxiety disorder, unspecified; M06.9 Rheumatoid arthritis, unspecified; F12.10 Cannabis abuse, uncomplicated; E66.9 Obesity, unspecified; F17.210 Nicotine dependence, cigarettes, uncomplicated; Z88.8 Allergy status to other drugs, medicaments and biological substances; Z80.3 Family history of malignant neoplasm of breast; Z86.718 Personal history of other venous thrombosis and embolism; I25.2 Old myocardial infarction; Z79.899 Other long term (current) drug therapy; Z68.31 Body mass index [BMI] 31.0-31.9, adult

== ENCOUNTER 2020-06-21 20:19 | Observation (INO) | payer MEDICARE ==
[~2020-06-21] VITALS: Ht 177 cm; Wt 104.3 kg
[~2020-06-21 20:19] MED LIST changes: +ATORVASTATIN CA20 M1 PO; +AUGMENTIN 875-875 MG PO; +BENTYL PO; +FLORASTOR250 MG PO; +KLONOPIN0.5 MG PO; +LISINOPRIL10 M1 PO; +NALTREXONE50 MG PO; +NAPROXEN500 MG PO; +OSTERA TABLET1 EACH PO; +Phenergan25 MG PO; +TAMSULOSIN HCL0.4 MG PO
[2020-06-21 20:32] VITALS: BP 169/114
[2020-06-21 20:37] LABS: BASO # 0.1 10*3/uL (0.0-0.1); BASO % 0.7 % (0.0-1.0); EOS # 0.7 10*3/uL (0.0-0.4); EOS % 5.8 % (1.0-4.0); HEMATOCRIT 45.9 % (42.0-52.0); LYMPH # 3.9 10*3/uL (1.3-4.4); LYMPH % 30.4 % (27.0-41.0); MEAN CORPUSCULAR HGB 29.8 pg (27.0-31.0); MEAN CORPUSCULAR HGB CONC 33.6 g/dl (33.0-37.0); MEAN PLATELET VOLUME 10.6 fl (9.6-12.3); MONO % 7.7 % (3.0-9.0); NEUT % 54.8 % (47.0-73.0); PLATELET COUNT AUTOMATED 222 10*3/uL (130-400); RED BLOOD COUNT 5.16 10*6/uL (4.50-5.90); RED CELL DISTRI WIDTH 13.7 % (0-14.5); WHITE BLOOD COUNT 12.8 10*3/uL (4.8-10.8)
[2020-06-21 20:49] LABS: ACT PARTIAL THROMBO TIME 30.6 SECONDS (20.0-32.1)
[2020-06-21 20:54] LABS: ALBUMIN 3.7 gm/dl (3.1-4.5); ALKALINE PHOSPHATASE 73 U/L (45-117); BUN 13 mg/dl (7-24); CHLORIDE 110 mmol/L (98-107); CREATININE 1.41 mg/dL (0.70-1.30); POTASSIUM 4.2 mmol/L (3.5-5.1); SGOT/AST 8 IU/L (3-35); SGPT/ALT 24 U/L (12-78); SODIUM 141 mmol/L (136-145); TOTAL PROTEIN 7.5 gm/dL (6.4-8.2)
[2020-06-21 20:59] LABS: TROPONIN I < 0.015 ng/ml (<0.045)
[2020-06-21 23:00] VITALS: BP 144/70
[2020-06-22 00:30] VITALS: BP 134/64
--- NOTE | 2020-06-22 02:31 | NUR ---
0200 PT IN ROOM CRYING STATES THE MD WAS IN AND EXPLAINED TO HIM HE NEEDS TO HAVE A CAT SCAN BECAUSE HE FEELS HE IS PARALYZED. DR SHANNON MADE AWARE AND AT THIS TIMEHTE PATIENT IS ADMITTED. HOSPITALIST CALLED TO EXPLAIN TO PATIENT EHY THIS TESTING IS NEEDED. I DID GO BACK AND EXPLAIN TO THE PATIENT THE MD WAS WAITING ON RESULTS FROM HIS CT HE HAD AT [facility]. EVELYNE RICHARDS.
[2020-06-22 03:05] VITALS: BP 144/70
--- NOTE | 2020-06-22 03:30 | NUR ---
PT LEADS ARE OFF THE PATIENT AGAIN. PT STATES HE DOES NOT LIKE THEM ON. HE IS AWAKE ALERT MORE RELAXED AT THIS TIME. IV INFUSING AT 100/HR. EVELYNE RUSSELL RN
[2020-06-22 06:15] LABS: BASO # 0.1 10*3/uL (0.0-0.1); BASO % 0.6 % (0.0-1.0); EOS # 0.9 10*3/uL (0.0-0.4); EOS % 7.4 % (1.0-4.0); HEMATOCRIT 43.7 % (42.0-52.0); LYMPH % 31.4 % (27.0-41.0); MEAN CELL VOLUME 89.7 fl (80.0-94.0); MEAN CORPUSCULAR HGB 30.2 pg (27.0-31.0); MEAN CORPUSCULAR HGB CONC 33.6 g/dl (33.0-37.0); MEAN PLATELET VOLUME 10.6 fl (9.6-12.3); MONO % 7.6 % (3.0-9.0); NEUT # 6.6 10*3/uL (2.3-7.9); NEUT % 52.3 % (47.0-73.0); PLATELET COUNT AUTOMATED 204 10*3/uL (130-400); RED BLOOD COUNT 4.87 10*6/uL (4.50-5.90); RED CELL DISTRI WIDTH 13.7 % (0-14.5); WHITE BLOOD COUNT 12.6 10*3/uL (4.8-10.8)
[2020-06-22 06:25] LABS: BUN 18 mg/dl (7-24); CHLORIDE 111 mmol/L (98-107); CREATININE 1.32 mg/dL (0.70-1.30); SODIUM 141 mmol/L (136-145)
[2020-06-22 08:00] VITALS: BP 122/67
[2020-06-22 08:02] VITALS: BP 150/90
--- NOTE | 2020-06-22 08:15 | NUR ---
A 44, admitted to , under the services of SHELLY Boateng DO with a diagnosis of SYNCOPE. Chief complaint is SYNCOPE. Patient arrived via stretcher from ER. Monitor REFUSED BY PATIENT. RESIDENT PHYSICIAN IN THE ROOM,Samanta THOMAS PATIENT REFUSED MONITOR Initial assessment completed. Vital signs taken and recorded. SHELLY BOATENG DO notified of admission to the unit. Orders WERE PLACED PRIOR TO PATIENT ARRIVING ON UNIT. See assessment for past medical history, medications and allergies. Patient and/or family oriented to unit. [facility] Clothing/patient valuable form completed. CEDRICK GARCIA
--- NOTE | 2020-06-22 08:26 | NUR ---
Destiny NOTIFIED OF CONSULT TO DR. VELAZQUEZ.
--- NOTE | 2020-06-22 08:26 | NUR ---
WHEN PT WAS TRANSFERRED TO 5TH FLOOR HE STATED THAT HE FELT BETTER AND SAID "I'LL PROBABLY SIGN MYSELF OUT TODAY, I DON'T WANT TO BE HERE." I ASKED PT TO LET DOCTORS EVALUATE HIM BEFORE HE MAKES A DECISION AND HE AGREED.
--- NOTE | 2020-06-22 08:28 | NUR ---
RESIDENT IN WITH PATIENT. WILL COMPLETE ADMISSION ASSESSMENT WHEN ABLE.
--- NOTE | 2020-06-22 09:00 | NUR ---
Psychiatric Cns in to talk to patient. Patient states lives at home with alone. There are no steps in the home. Physician: manuela joyner Pharmacy: [facility] Home health services: none Patient's level of ADLs: INDEPENDENT Patient has working utilities: all working DME: none Follow-up physician's appointment after d/c: will be made by hospitalist nurse director upon discharge Does patient want to access PORTAL?: no Discharge plan discussed with patient, he lives at home alone, he states he is independent in adls and ambulation, he states he will return home when discharged and denies any home needs. DARVIN CISNEROS
[2020-06-22] MEDS ORDERED: DICYCLOMINE HYD10 MG PO (09:15)
[2020-06-22] MEDS ORDERED: PROSCAR5 M1 PO (09:16)
--- NOTE | 2020-06-22 09:16 | NUR ---
IV BAG OF FLUID PATIETN WAS SENT FROM ER WITH, TUBING CAME UNHOOKED FROM BAG AND BAG LEAKED, NOT INFUSED. ANOTHER IV NS BAG WAS HUNG.
[2020-06-22] MEDS ORDERED: LOPRESSOR25 MG PO (09:17)
[2020-06-22] MEDS ORDERED: MELATONIN10 M2 PO (09:17)
[2020-06-22] MEDS ORDERED: ASPIRIN81 M1 PO (09:18)
[2020-06-22] MEDS ORDERED: CHOLESTYRAMINE P4 GM PO (09:19)
[2020-06-22] MEDS ORDERED: NICODERM CQ1 EAC2 T (09:21)
[2020-06-22] MEDS ORDERED: ONDANSETRON4 MG SL (09:22)
[2020-06-22] MEDS ORDERED: PANTOPRAZOLE SO40 MG PO (09:22)
[2020-06-22] MEDS ORDERED: VITAMIN D350 MCG PO (09:23)
--- NOTE | 2020-06-22 09:23 | NUR ---
IV LEFT AC INFILTRATED, REMOVED. PT REFUSE IV RESTART AT THIS TIME
[2020-06-22] MEDS ORDERED: TERBINAFINE250 MG PO (09:24)
[2020-06-22] MEDS ORDERED: CARAFATE1 GM/10 ML PO (09:24)
--- NOTE | 2020-06-22 09:30 | NUR ---
MED REC UPDATED PER LIST FROM PATIENT. DR PFEIFFER NOTIFIED.
--- NOTE | 2020-06-22 09:57 | NUR ---
DR. BIRMINGHAM AWARE THAT PT REQUESTING PAIN MEDICATION FOR RIGHT WRIST PAIN. AWARE IV INFILTRATED. PER DR. BIRMINGHAM, PT WILL BE DISCHARGED.
--- NOTE | 2020-06-22 10:00 | NUR ---
iv infiltrated left ac, discontinued.
--- NOTE | 2020-06-22 11:20 | NUR ---
discharge home via wheelchair
--- NOTE | 2020-06-22 11:20 | NUR ---
Discharge instructions reviewed with patient. Patient receptive and verbalizes understanding. Follow-up care understood Written instructions given to patient. CEDRCIK GARCIA
== END 2020-06-22 11:44 | disposition home or self-care (01) ==
LOC: ED 20:19 → EDHOLD 23:27 → 5E 23:27
PROVIDERS: Emergency Medicine; Student in an Organized Health Care Education/Training Program; ADMIT Internal Medicine
DX: R55 Syncope and collapse (principal); N17.0 Acute kidney failure with tubular necrosis; D72.829 Elevated white blood cell count, unspecified; E87.8 Other disorders of electrolyte and fluid balance, not elsewhere classified; E11.65 Type 2 diabetes mellitus with hyperglycemia; E83.41 Hypermagnesemia; E78.5 Hyperlipidemia, unspecified; F41.9 Anxiety disorder, unspecified; F31.9 Bipolar disorder, unspecified; M06.9 Rheumatoid arthritis, unspecified

== ENCOUNTER 2021-03-16 11:24 | Emergency (ER) | payer OTHER ==
[~2021-03-16] VITALS: Ht 182.8 cm; Wt 117.9 kg
[~2021-03-16 11:24] MED LIST changes: +ASPIRIN81 M1 PO; +CARAFATE1 GM/10 ML PO; +CHOLESTYRAMINE P4 GM PO; +DICYCLOMINE HYD10 MG PO; +LOPRESSOR25 MG PO; +MELATONIN10 M2 PO; +ONDANSETRON4 MG SL; +PANTOPRAZOLE SO40 MG PO; +PROSCAR5 M1 PO; +TERBINAFINE250 MG PO; +VITAMIN D350 MCG PO
[2021-03-16 12:02] LABS: HEMATOCRIT 43.5 % (42.0-52.0); MEAN CELL VOLUME 95.2 fl (80.0-94.0); MEAN CORPUSCULAR HGB 31.3 pg (27.0-31.0); MEAN CORPUSCULAR HGB CONC 32.9 g/dl (33.0-37.0); MEAN PLATELET VOLUME 10.7 fl (9.6-12.3); PLATELET COUNT AUTOMATED 201 10*3/uL (130-400); RED BLOOD COUNT 4.57 10*6/uL (4.50-5.90); RED CELL DISTRI WIDTH 15.7 % (0-14.5); WHITE BLOOD COUNT 21.1 10*3/uL (4.8-10.8)
[2021-03-16 12:12] LABS: ACT PARTIAL THROMBO TIME 25.2 SECONDS (20.0-32.1)
[2021-03-16] MEDS ORDERED: NEURONTIN800 MG PO (12:15)
[2021-03-16] MEDS ORDERED: QUALITY CHOICE A2 MG PO (12:16)
[2021-03-16 12:18] LABS: ALBUMIN 3.5 gm/dl (3.1-4.5); ALKALINE PHOSPHATASE 74 U/L (45-117); BUN 18 mg/dl (7-24); CHLORIDE 112 mmol/L (98-107); POTASSIUM 3.7 mmol/L (3.5-5.1); SGOT/AST 6 IU/L (3-35); SGPT/ALT 28 U/L (12-78); SODIUM 143 mmol/L (136-145); TOTAL PROTEIN 6.7 gm/dL (6.4-8.2)
[2021-03-16] MEDS ORDERED: OLOPATADINE HCL5 ML OD (12:20)
[2021-03-16 12:21] LABS: PLATELET SUFFICIENCY NORMAL (NORMAL); POLYCHROMASIA SLIGHT; TARGET CELLS FEW; TOTAL CELLS COUNTED 100 #CELLS
[2021-03-16] MEDS ORDERED: CRESTOR10 M1 PO (12:21)
[2021-03-16] MEDS ORDERED: PERCOCET 5-3251 EACH PO (12:22)
[2021-03-16 12:23] LABS: TROPONIN I < 0.015 ng/ml (<0.045)
[2021-03-16] MEDS ORDERED: AMOXICILLIN500 M2 PO (12:23)
[2021-03-16] MEDS ORDERED: 'CLONIDINE0.1 MG PO (12:23)
[2021-03-16 15:19] LABS: BILIRUBIN Negative (Negative); BLOOD Negative (Negative); CLARITY Clear (Clear); COLOR Yellow (Yellow); GLUCOSE Negative (Negative); KETONE Negative (Negative); LEUKO ESTERASE Negative (Negative); NITRITE Negative (Negative); PH 7.5 (4.5-8.0); SPECIFIC GRAVITY >= 1.030 (1.001-1.030); UROBILINOGEN 0.2 E.U./dl (0.0-1.0)
[2021-03-16 15:35] LABS: EPITHELIAL CELLS 0-2; RBC 0-2 rbc/hpf (0-2); WBC 0-2 wbc/hpf (0-5)
== END 2021-03-16 19:28 | disposition short-term general hospital (02) ==
LOC: ED 11:24
PROVIDERS: Physician Assistant
DX: I82.B12 Acute embolism and thrombosis of left subclavian vein (principal); D72.829 Elevated white blood cell count, unspecified; F17.200 Nicotine dependence, unspecified, uncomplicated; Z90.89 Acquired absence of other organs; Z98.890 Other specified postprocedural states; Z79.82 Long term (current) use of aspirin; Z88.8 Allergy status to other drugs, medicaments and biological substances